=== PATIENT | female | born 1950 | race African-American/Black ===

== ENCOUNTER 2020-02-11 20:31 | Inpatient (IN) | payer OTHER, MEDICAID ==
[~2020-02-11] VITALS: Ht 172.7 cm; Wt 98.0 kg
[2020-02-11] MEDS ORDERED: HYDROCORTISONE SOD SUCCINATE 100 MG/2 ML VIAL IV ONE (21:15)
[2020-02-11] MEDS ORDERED: VANCOMYCIN 1 G PREMIX 200 ML IV ONE (21:15)
[2020-02-11] MEDS ORDERED: PIPERACILLIN/TAZ 3.375G PREMIX 50 ML IV ONE (21:15)
[2020-02-11] MEDS ORDERED: SODIUM CHLORIDE 0.9% 1000ML BAG (SEPSIS BOLUS) IV ONE (21:15)
[2020-02-11 22:05] LABS: HEMATOCRIT. 42.3 % (36.0-48.0); HEMOGLOBIN. 13.9 g/dL (12.0-16.0); MEAN CORPUSCULAR HEMOGLOBIN 28.2 pg (28.0-32.0); MEAN CORPUSCULAR VOLUME 85.7 fL (81.0-99.0); MEAN PLATELET VOLUME 9.4 fl (7.4-10.4); PLATELET 195 x1000/uL (130-400); RED BLOOD CELL COUNT 4.93 mill/uL (4.2-5.4); RED CELL DISTRIBUTION WIDTH 13.1 % (11.6-14.6)
[2020-02-11 22:09] LABS: CHLORIDE 105 mEq/L (98-107)
[2020-02-11 22:12] LABS: PROTHROMBIN TIME 10.7 sec (9.6-11.0)
[2020-02-11 22:27] LABS: CLARITY URINE CLEAR (CLEAR); COLOR URINE YELLOW (YELLOW); KETONES URINE NEGATIVE (NEGATIVE); LEUKOCYTE ESTERASE URINE NEGATIVE (NEGATIVE); NITRITE URINE NEGATIVE (NEGATIVE); OCCULT BLOOD URINE NEGATIVE (NEGATIVE); PH URINE 7.5 (4.5-8.0); PROTEIN URINE NEGATIVE (NEGATIVE); SPECIFIC GRAVITY URINE 1.007 (1.005-1.030); UROBILINOGEN URINE 0.2 E.U./dL (0.2-1.0)
[2020-02-11 22:41] LABS: PLATELET ESTIMATE NORMAL
[2020-02-11] MEDS ORDERED: ACETAMINOPHEN 325MG TABLET PO ONE (23:00)
[2020-02-11] MEDS ORDERED: LABETALOL 5MG/ML SYR 20 MG/4 ML SYRINGE IV ONE (23:52)
[2020-02-12] MEDS ORDERED: AZITHROMYCIN 500 MG in DEXT 5% WATER 250 ML IV SCH (01:30)
[2020-02-12] MEDS ORDERED: ACETAMINOPHEN 325MG TABLET PO ONE (02:15)
[2020-02-12 10:19] VITALS: BP 150/80
[2020-02-12] MEDS ORDERED: FLUT9.9S16 BOTHNSTRLS (10:58)
[2020-02-12] MEDS ORDERED: POTA20TA82 MT (10:58)
[2020-02-12] MEDS ORDERED: LISI-186 MT (10:58)
[2020-02-12] MEDS ORDERED: ALBU18HF2 IH (10:58)
[2020-02-12] MEDS ORDERED: OMEP20TA2 MT (10:58)
[2020-02-12] MEDS ORDERED: MONT10TA21 MT (10:58)
[2020-02-12] MEDS ORDERED: CRES10 MT (10:58)
[2020-02-12] MEDS ORDERED: DICY10AM2 IM (10:59)
[2020-02-12] MEDS ORDERED: ACETAMINOPHEN 325MG TABLET PO PRN (11:30)
[2020-02-12] MEDS ORDERED: CEFTRIAXONE 1,000 MG in DEXTROSE 5% WATER 50 ML IV SCH ×2 (11:30→13:00)
[2020-02-12] MEDS ORDERED: ONDANSETRON HCL 4MG/2ML INJ IV PRN (11:30)
[2020-02-12] MEDS ORDERED: DEXTROSE 50% WATER 50ML SYRINGE IV PRN (11:30)
[2020-02-12 12:00] VITALS: BP 158/89
[2020-02-12] MEDS: INSULIN LISPRO 100 UNITS/ML SUBCUT SCH ×3 (12:40→20:44)
[2020-02-12] MEDS: BLOOD SUGAR DIAGNOSTIC STRIP TEST SCH ×3 (12:44→20:44)
[2020-02-12 16:00] VITALS: BP 165/94
[2020-02-12] MEDS ORDERED: AMLODIPINE 10MG TABLET PO SCH (18:00)
[2020-02-12 20:00] VITALS: BP 165/91
[2020-02-12] MEDS ORDERED: CLONIDINE 0.1MG TABLET PO PRN (20:45)
[2020-02-12 22:41] VITALS: BP 165/91
== END 2020-02-12 22:59 | disposition short-term general hospital (02) | DRG 871 ==
LOC: ER 20:31 → 8WST 02-12 01:25 → EDBEDREQDT 02-12 01:33 → EDBEDREQSVC 02-12 01:33 → EDBEDREQTM 02-12 01:33 → EDBEDREQ 02-12 01:33 → ENRESERV 02-12 02:20 → CANRESERV 02-12 02:20 → ENRESERV 02-12 07:47
PROVIDERS: ADMIT Internal Medicine; ATTEND Internal Medicine
DX: A41.9 Sepsis, unspecified organism (principal); R65.21 Severe sepsis with septic shock; N39.0 Urinary tract infection, site not specified; E11.9 Type 2 diabetes mellitus without complications; I10 Essential (primary) hypertension; K57.30 Diverticulosis of large intestine without perforation or abscess without bleeding; R00.0 Tachycardia, unspecified; Z20.828 Contact with and (suspected) exposure to other viral communicable diseases; E66.9 Obesity, unspecified; Z68.32 Body mass index [BMI] 32.0-32.9, adult; Z87.440 Personal history of urinary (tract) infections; Z79.899 Other long term (current) drug therapy
CPT/HCPCS: 36415; 71045; 74176; 80053; 81003; 82962; 83605; 84145; 84484; 85025; 86850; 86900; 87426; 93005; 99291; J0456; J0696; J1720; J2543; J3370; J3490; J7030; J7060